=== PATIENT | male | born 1990 | race Caucasian/White ===

== ENCOUNTER 2018-04-11 01:31 | Emergency (ER) | payer MEDICAID ==
[~2018-04-11] VITALS: Ht 185.4 cm; Wt 98.4 kg
[~2018-04-11 01:31] MED LIST: KETO15CR2 TP
[2018-04-11 01:48] VITALS: BP 105/72
[2018-04-11] MEDS ORDERED: LIDOcaine 1% w/epiNEPHrine 1:200,000 30ml vial IM ONE (02:35)
== END 2018-04-11 03:25 | disposition home or self-care (01) ==
LOC: ER 01:32
DX: S01.81XA Laceration without foreign body of other part of head, initial encounter (principal); F12.90 Cannabis use, unspecified, uncomplicated; Z79.899 Other long term (current) drug therapy; Z98.890 Other specified postprocedural states; Y04.8XXA Assault by other bodily force, initial encounter; Y93.89 Activity, other specified; Y92.89 Other specified places as the place of occurrence of the external cause; Y99.8 Other external cause status
CPT/HCPCS: 12013; 99283; 99284

== ENCOUNTER 2019-05-23 17:51 | Emergency (ER) | payer MEDICAID, OTHER ==
[~2019-05-23] VITALS: Ht 185.4 cm; Wt 98.5 kg
[2019-05-23 18:47] VITALS: BP 129/85
== END 2019-05-23 20:28 | disposition home or self-care (01) ==
LOC: ER 18:02
DX: S11.81XA Laceration without foreign body of other specified part of neck, initial encounter (principal); F12.90 Cannabis use, unspecified, uncomplicated; Z98.890 Other specified postprocedural states; Z79.899 Other long term (current) drug therapy; W01.0XXA Fall on same level from slipping, tripping and stumbling without subsequent striking against object, initial encounter; Y93.89 Activity, other specified; Y92.89 Other specified places as the place of occurrence of the external cause; Y99.8 Other external cause status
CPT/HCPCS: 12042; 99284

== ENCOUNTER 2019-05-31 13:06 | Emergency (ER) | payer MEDICAID, OTHER ==
[~2019-05-31] VITALS: Ht 185.4 cm; Wt 95.5 kg
[~2019-05-31 13:06] MED LIST changes: +LIDOcaine 1% W/epiNEPHrine 1:100,000 20ml vial ONE
[2019-05-31 13:09] VITALS: BP 126/87
== END 2019-05-31 15:17 | disposition home or self-care (01) ==
LOC: ER 13:07
DX: S11.81XD Laceration without foreign body of other specified part of neck, subsequent encounter (principal); F12.90 Cannabis use, unspecified, uncomplicated; Z98.890 Other specified postprocedural states; Z79.899 Other long term (current) drug therapy; W01.0XXD Fall on same level from slipping, tripping and stumbling without subsequent striking against object, subsequent encounter
CPT/HCPCS: 99281

== ENCOUNTER 2019-06-08 10:07 | Emergency (ER) | payer MEDICAID, OTHER ==
[~2019-06-08] VITALS: Ht 185.4 cm; Wt 99.0 kg
[~2019-06-08 10:07] MED LIST changes: -LIDOcaine 1% W/epiNEPHrine 1:100,000 20ml vial ONE
[2019-06-08 10:10] VITALS: BP 139/81
== END 2019-06-08 10:42 | disposition home or self-care (01) ==
LOC: ER 10:08
DX: S01.81XD Laceration without foreign body of other part of head, subsequent encounter (principal); F12.90 Cannabis use, unspecified, uncomplicated; Z98.890 Other specified postprocedural states; W01.0XXA Fall on same level from slipping, tripping and stumbling without subsequent striking against object, initial encounter; Y93.89 Activity, other specified; Y92.89 Other specified places as the place of occurrence of the external cause; Y99.9 Unspecified external cause status
CPT/HCPCS: 99281

== ENCOUNTER 2020-11-02 09:54 | Emergency (ER) | payer MEDICAID, OTHER ==
[~2020-11-02] VITALS: Ht 185.4 cm; Wt 93.2 kg
[2020-11-02] MEDS ORDERED: LIDOcaine 1% 30ml preserv. free vial IJ ONE (10:15)
[2020-11-02] MEDS ORDERED: TETanus/Pertussis (Acell)/Diphther VAC/PF (Tdap-Adult) 0.5ml syringe IMVAC ONE (10:15)
[2020-11-02] MEDS ORDERED: CEPH-585 PO (11:56)
--- NOTE | 2020-11-02 12:02 | NUR ---
PT IS RESTING QUIETLY ON GURNEY, HAS HAD WOUND TO RT FOREARM SUTURED AND DRESSING APPLIED
[2020-11-02 12:43] VITALS: BP 118/82
== END 2020-11-02 12:45 | disposition home or self-care (01) ==
LOC: ER 09:55
DX: S51.811A Laceration without foreign body of right forearm, initial encounter (principal); F12.90 Cannabis use, unspecified, uncomplicated; Z98.890 Other specified postprocedural states; Z79.899 Other long term (current) drug therapy; W26.8XXA Contact with other sharp object(s), not elsewhere classified, initial encounter; Y93.89 Activity, other specified; Y92.89 Other specified places as the place of occurrence of the external cause; Y99.8 Other external cause status
CPT/HCPCS: 12002; 73090; 90471; 90715; 99283; J2001